=== PATIENT | female | born 2005 | race Two or more races ===

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

== ENCOUNTER 2024-01-19 16:59 | Emergency (ER) | payer MEDICAID ==
[~2024-01-19] VITALS: Ht 165.1 cm; Wt 66.1 kg
[2024-01-19 17:45] VITALS: BP 122/77; PULSE 78; RESP 17; TEMP 97.7; O2SAT 97
[2024-01-19] MEDS ORDERED: IBUP-1454 PO (17:50)
[2024-01-19] MEDS ORDERED: METH-1181 PO (17:50)
[2024-01-19] MEDS: KETOROLAC TROMETH 60MG/2ML VIAL IM ONE (17:53)
== END 2024-01-19 18:53 | disposition home or self-care (01) ==
LOC: ER 16:59
DX: M54.41 Lumbago with sciatica, right side (principal)
CPT/HCPCS: 96372; 99283; J1885